=== PATIENT | female | born 1990 | race Caucasian/White ===

== ENCOUNTER 2018-12-03 22:53 | Emergency (ER) | payer MEDICAID, OTHER ==
[2018-12-03] MEDS ORDERED: Sulfameth/Trimethoprim DS 800-160mg TAB ONE (23:13)
[2018-12-03] MEDS ORDERED: Cephalexin 500 MG CAP ONE (23:13)
== END 2018-12-03 23:34 ==
LOC: MADERS 22:53
DX: L03.113 Cellulitis of right upper limb (principal); F17.210 Nicotine dependence, cigarettes, uncomplicated
CPT/HCPCS: 99283